=== PATIENT | female | born 1940 | race Caucasian/White ===

== ENCOUNTER → 2018-04-23 | Outpatient (CLI) | payer MEDICARE, MEDICAID ==
[2014-07-08 16:15] VITALS: BP 100/65
--- NOTE | 2018-04-23 15:37 | KCIC ---
Thyroid ultrasound dated 04/23/2018. No comparison available. CLINICAL INDICATION: Fullness of thyroid gland change in thyroid labs. FINDINGS: Right lobe thyroid gland measures 6.5 x 2.2 x 2.2 cm. Left lobe measures 5.7 x 2.1 x 1.9 cm. Small cystic focus at the midpole right thyroid gland measures 8 mm with small central echogenic focus that may represent calcification. There is also a cluster small cysts at the midpole left thyroid gland measuring up to 4 mm in size, similar in appearance. A similar cystic focus is noted at the lower pole left thyroid gland measuring 4 mm. Both glands are somewhat heterogeneous. IMPRESSION: 1. Heterogeneous enlarged thyroid gland, nonspecific. This could represent acute or chronic thyroiditis or multinodular goiter. 2. There are small bilateral thyroid cysts. Electronically signed by: Noe Espinal MD (04/23/2018 3:34 PM) [id number]
== END | disposition home or self-care (01) ==
LOC: KCIC US 14:36
PROVIDERS: ATTEND Physician Assistant Medical
DX: E04.8 Other specified nontoxic goiter (principal); E04.2 Nontoxic multinodular goiter
CPT/HCPCS: 76536